=== PATIENT | male | born 1985 | race Caucasian/White ===

== ENCOUNTER 2018-05-11 19:48 | Emergency (ER) | payer BC, OTHER | END 2018-05-11 20:26 | disposition home or self-care (01) | LOC: BURERS 19:48 | DX: K60.2 Anal fissure, unspecified (principal); F17.210 Nicotine dependence, cigarettes, uncomplicated | CPT/HCPCS: 99283 ==

== ENCOUNTER 2018-08-17 01:47 | Emergency (ER) | payer OTHER ==
[2018-08-17] MEDS ORDERED: predniSONE 20 MG TAB ONE (02:06)
[2018-08-17] MEDS ORDERED: Famotidine 20 MG TAB ONE (02:06)
== END 2018-08-17 02:14 | disposition home or self-care (01) ==
LOC: BURERS 01:47
DX: L25.9 Unspecified contact dermatitis, unspecified cause (principal); F17.210 Nicotine dependence, cigarettes, uncomplicated
CPT/HCPCS: 99283; J7506

== ENCOUNTER 2018-12-03 22:59 | Emergency (ER) | payer OTHER, SELFPAY ==
[2018-12-03] MEDS ORDERED: HYDROcodone/Acetaminophen 10/325 mg Tablet ONE (23:21)
[2018-12-03] MEDS ORDERED: Clindamycin 150 MG CAP ONE (23:21)
== END 2018-12-03 23:38 | disposition home or self-care (01) ==
LOC: BURERS 22:59
DX: K02.9 Dental caries, unspecified (principal); F17.210 Nicotine dependence, cigarettes, uncomplicated; Z79.899 Other long term (current) drug therapy
CPT/HCPCS: 99282

== ENCOUNTER 2019-01-21 18:42 | Emergency (ER) | payer OTHER | END 2019-01-21 19:40 | disposition home or self-care (01) | LOC: BURERS 18:42 | DX: S83.91XA Sprain of unspecified site of right knee, initial encounter (principal); Z79.899 Other long term (current) drug therapy; X58.XXXA Exposure to other specified factors, initial encounter | CPT/HCPCS: 36415; 85379; 99283 ==

== ENCOUNTER 2021-08-23 09:05 | Emergency (ER) | payer OTHER, SELFPAY ==
[2021-08-24 01:05] LABS: SARS-CoV-2 PCR by NAA Not Detected (NotDetected)
== END 2021-08-23 09:29 | disposition home or self-care (01) ==
LOC: BURERS 09:05
DX: R43.8 Other disturbances of smell and taste (principal); R05.9 Cough, unspecified; Z20.822 Contact with and (suspected) exposure to COVID-19; F17.210 Nicotine dependence, cigarettes, uncomplicated
CPT/HCPCS: 99406; U0003; U0005

== ENCOUNTER 2022-04-17 15:37 | Outpatient (CLI) | payer OTHER | END 2022-04-17 15:38 | disposition home or self-care (01) | LOC: BURRAD 15:37 | PROVIDERS: ATTEND Nurse Practitioner Family | DX: S39.92XA Unspecified injury of lower back, initial encounter (principal); M54.2 Cervicalgia | CPT/HCPCS: 72120 ==

== ENCOUNTER 2023-06-29 12:19 | Emergency (ER) | payer SELFPAY ==
[2023-06-29] MEDS ORDERED: Dexamethasone 4 MG TAB ONE (12:33)
== END 2023-06-29 12:38 | disposition home or self-care (01) ==
LOC: BURERS 12:19
DX: J02.9 Acute pharyngitis, unspecified (principal); F17.210 Nicotine dependence, cigarettes, uncomplicated
CPT/HCPCS: 99283; J8540

== ENCOUNTER 2025-11-03 17:47 | Emergency (ER) | payer SELFPAY ==
[2025-11-03] MEDS ORDERED: HYDROcodone/Acetaminophen 5/325 mg Tablet ONE (18:40)
== END 2025-11-03 18:42 | disposition home or self-care (01) ==
LOC: BURERS 17:47
DX: K04.7 Periapical abscess without sinus (principal); F17.210 Nicotine dependence, cigarettes, uncomplicated
CPT/HCPCS: 93005; 99283; J3490